=== PATIENT | male | born 1950 | race Caucasian/White ===

== ENCOUNTER 2019-01-20 07:34 | Emergency (ER) | payer OTHER ==
[~2019-01-20] VITALS: Ht 171.4 cm; Wt 114.5 kg
[2019-01-20 07:54] VITALS: Ht 171.4 cm; Wt 114.5 kg
[2019-01-20] MEDS ORDERED: ULTRAM50 MG PO (10:11)
[2019-01-20 10:29] VITALS: BP 138/66
== END 2019-01-20 10:30 | disposition home or self-care (01) ==
LOC: D.ER 07:34
DX: M54.5 Low back pain (principal); E11.9 Type 2 diabetes mellitus without complications; I10 Essential (primary) hypertension

== ENCOUNTER → 2019-03-20 07:32 | Outpatient (CLI) | payer OTHER ==
[2019-01-20 07:54] VITALS: BMI 38.9
[~2019-03-20 07:32] MED LIST: ULTRAM50 MG PO
== END | disposition home or self-care (01) ==
LOC: D.RT 07:32
PROVIDERS: ATTEND Nurse Practitioner
DX: R06.02 Shortness of breath (principal)

== ENCOUNTER 2019-10-02 10:52 | Emergency (ER) | payer OTHER ==
[~2019-10-02] VITALS: Ht 171.4 cm; Wt 111.4 kg
[2019-10-02 11:04] VITALS: Ht 171.4 cm; Wt 111.4 kg
[2019-10-02] MEDS ORDERED: MELATONIN 3 MG1 TAB PO (11:27)
[2019-10-02] MEDS ORDERED: METFORMIN HCL500 M1 PO (11:27)
[2019-10-02] MEDS ORDERED: PROPRANOLOL HCL20 MG PO (11:28)
[2019-10-02] MEDS ORDERED: ACETAMINOPHEN500 M1 PO (11:28)
[2019-10-02] MEDS ORDERED: PROTONIX40 MG PO (11:28)
[2019-10-02] MEDS ORDERED: FLOMAX0.4 MG PO (11:28)
[2019-10-02] MEDS ORDERED: LIPITOR20 MG PO (11:29)
[2019-10-02] MEDS ORDERED: ASPIRIN81 MG PO (11:29)
[2019-10-02] MEDS ORDERED: BUPROPION HCL75 MG PO ×2 (11:29→11:30)
[2019-10-02] MEDS ORDERED: PROSCAR5 MG PO (11:30)
[2019-10-02] MEDS ORDERED: ZYRTEC10 MG PO (11:30)
[2019-10-02] MEDS ORDERED: BANOPHEN25 MG PO (11:30)
[2019-10-02] MEDS ORDERED: GABAPENTIN100 MG PO (11:31)
[2019-10-02] MEDS ORDERED: IBUPROFEN800 MG PO (11:31)
[2019-10-02] MEDS ORDERED: COZAAR25 MG PO (11:31)
[2019-10-02] MEDS ORDERED: GLUCOTROL 5 MG T5 MG PO (11:31)
[2019-10-02] MEDS ORDERED: MACRODANTIN100 MG PO (11:32)
[2019-10-02 11:57] LABS: BASOPHILS 0.1 % (0-2); EOSINOPHILS 1.2 % (0-7); HEMOGLOBIN 14.8 g/dL (13.5-17.5); IMMATURE GRANULOCYTES 0.3 % (0-5); MCH 32.8 pg (26.0-34.0); MCHC 33.6 g/dL (31.0-37.0); MCV 97.6 fL (80.0-100.0); MEAN PLATELET VOLUME 10.3 fL (7.4-10.4); NEUTROPHILS 75.4 % (40-80); PLATELET COUNT 195 10x3/uL (130-400); RBC 4.51 10x6/uL (4.20-6.10); RDW 13.1 % (11.5-14.5); WBC 10.3 10x3/uL (4.8-10.8)
[2019-10-02 12:08] LABS: BILIRUBIN NEGATIVE (NEGATIVE); GLUCOSE 250 mg/dL (NEGATIVE); KETONE MODERATE mg/dL (NEGATIVE); NITRITE NEGATIVE (NEGATIVE); UROBILINOGEN NORMAL (NORMAL)
[2019-10-02 12:09] LABS: BACTERIA FEW /hpf (NEGATIVE); EPITHELIAL CELLS 0-5 /hpf (0-5); RED CELLS - URINE 0-5 /hpf (0-5); YEAST >1+ /hpf (NONE SEEN)
[2019-10-02 12:13] LABS: ALBUMIN 3.3 g/dL (3.4-5.0); ALKALINE PHOSPHATASE 61 U/L (30-120); ALT (SGPT) 29 U/L (10-68); BILIRUBIN - TOTAL 0.73 mg/dL (0.2-1.3); CALC OSMOLALITY 272 mosm/kg (275-300); CARBON DIOXIDE 25.8 mmol/L (21.0-32.0); CHLORIDE - SERUM 103 mmol/L (98-107); CREATININE - SERUM 0.8 mg/dL (0.6-1.3); GLUCOSE 157 mg/dL (74-106); POTASSIUM - SERUM 3.8 mmol/L (3.5-5.1); SODIUM 135 mmol/L (136-145); eGFR NON AFRICAN AMERICAN > 90 mL/min (90-120)
[2019-10-02 12:14] LABS: UREA NITROGEN 12 mg/dL (7-18)
[2019-10-02] MEDS ORDERED: LEVOFLOXACIN500 MG PO (12:31)
[2019-10-02 13:00] VITALS: BP 118/76
== END 2019-10-02 13:05 | disposition home or self-care (01) ==
LOC: D.ER 10:52
PROVIDERS: Family Medicine
DX: N39.0 Urinary tract infection, site not specified (principal); R33.9 Retention of urine, unspecified; R30.0 Dysuria; E11.9 Type 2 diabetes mellitus without complications; I10 Essential (primary) hypertension; K21.9 Gastro-esophageal reflux disease without esophagitis; Z79.84 Long term (current) use of oral hypoglycemic drugs